=== PATIENT | male | born 1965 | race African-American/Black ===

== ENCOUNTER 2017-01-15 20:32 | Emergency (ER) | payer OTHER ==
[~2017-01-15] VITALS: Ht 175.3 cm; Wt 72.7 kg
[2017-01-15 21:25] LABS: BASOPHILS % (AUTO) 0.2 % (0.0-2.0); EOSINOPHILS % (AUTO) 0.1 % (1.0-6.0); HEMATOCRIT 46.2 % (41-53); HEMOGLOBIN 15.4 g/dL (13.5-17.5); LYMPHOCYTES # (AUTO) 1.5 K/uL (1.0-4.8); LYMPHOCYTES % (AUTO) 17.3 % (22.0-44.0); MEAN CORPUSCULAR HGB CONC 33.3 G/dL (31.0-37.0); MEAN CORPUSCULAR VOLUME 90 fL (80-100); MONOCYTES # (AUTO) 0.4 K/uL (0.1-1.0); MONOCYTES % (AUTO) 4.1 % (2.0-9.0); NEUTROPHILS # (AUTO) 6.8 K/uL (1.8-7.7); NEUTROPHILS % (AUTO) 78.3 % (40.0-70.0); PLATELET COUNT (AUTO) 266 K/uL (150-450); RED BLOOD CELL COUNT(AUTO) 5.12 MIL/uL (4.50-5.90); RED CELL DISTRIBUTION WIDTH 13.4 % (11.5-14.5); WHITE BLOOD COUNT (AUTO) 8.7 K/uL (4.5-11.0)
[2017-01-15 21:41] LABS: ANION GAP 11 mmol/L (8-16); CALCIUM, TOTAL 9.5 mg/dL (8.8-10.5); CARBON DIOXIDE 29 mmol/L (22-29); CHLORIDE 96 mmol/L (98-107); GLOMERULAR FILTR. RATE CALC > 60 mL/min (>60); POTASSIUM 4.3 mmol/L (3.5-5.1); SODIUM SERUM 136 mmol/L (136-145); UREA NITROGEN, BLOOD 13 mg/dL (7-18)
[2017-01-15 21:47] LABS: ALANINE AMINOTRANSFERASE 23 U/L (12-78); ALBUMIN 4.1 g/dL (3.4-5.0); ASPARTATE AMINOTRANSFERASE 17 U/L (15-37); BILIRUBIN,TOTAL 1.2 mg/dL (0.1-1.0); TOTAL PROTEIN, SERUM 8.3 g/dL (6.4-8.2)
[2017-01-15 22:16] LABS: RBC MORPHOLOGY COMMENT NORMAL RBC MORPH
[2017-01-15 23:07] LABS: APPEARANCE,URINE CLOUDY (CLEAR); GLUCOSE, URINE (UA) NEGATIVE (NEGATIVE); KETONES,URINE >=80 mg/dL (NEGATIVE); LEUKOCYTE ESTERASE ,URINE NEGATIVE (NEGATIVE); OCCULT BLOOD,URINE NEGATIVE (NEGATIVE); PH,URINE 5.5 (5.0-8.0); PROTEIN,URINE POS 1+ (NEGATIVE)
[2017-01-15 23:19] LABS: ADD UA MICROSCOPIC NO
[2017-01-16] MEDS ORDERED: ONDANSETRON HCL 4 MG/2 ML VIAL IVP ONE (00:45)
[2017-01-16] MEDS ORDERED: MORPHINE SULFATE 4 MG/ML SYRINGE IVP ONE (00:45)
[2017-01-16] MEDS ORDERED: DONNATAL/LIDOCAINE/MAALOX 55 ML BOTTLE PO ONE (01:00)
[2017-01-16] MEDS ORDERED: BARIUM SULFATE 0.1% SUSPENSION 450 ML BOTTLE PO ONE (01:00)
[2017-01-16] MEDS ORDERED: SODIUM CHLORIDE 0.9% 100 ML ONE (02:02)
[2017-01-16] MEDS ORDERED: IOVERSOL 350 MG/ML 100 ML VIAL ONE (02:02)
[2017-01-16 04:26] VITALS: BP 128/82
== END 2017-01-16 04:39 | disposition home or self-care (01) ==
LOC: EMS 20:34
DX: R10.13 Epigastric pain (principal)
CPT/HCPCS: 36415; 74177; 80053; 81003; 83690; 84484; 85025; 93005; 96374; 96375; 99285; J2270; J2405; J7050; Q9967; Z7610 ×2

== ENCOUNTER 2024-01-09 15:00 | Emergency (ER) | payer OTHER ==
[~2024-01-09] VITALS: Ht 165.1 cm; Wt 70.5 kg
[2024-01-09 15:10] VITALS: TEMP 97.8
[2024-01-09] MEDS: BACITRACIN 0.9 GM PACKET OINTMENT TP ONE (15:41)
[2024-01-09] MEDS: LIDOCAINE 1% 10 ML VIAL SQ ONE (15:41)
[2024-01-09 16:30] VITALS: BP 119/85; PULSE 85; RESP 16
[2024-01-09] MEDS ORDERED: CEPH-558 PO (16:31)
[2024-01-09] MEDS ORDERED: ACET-66 PO (16:31)
== END 2024-01-09 16:53 | disposition home or self-care (01) ==
LOC: EMS 15:48
DX: S61.213A Laceration without foreign body of left middle finger without damage to nail, initial encounter (principal); F12.90 Cannabis use, unspecified, uncomplicated; W26.8XXA Contact with other sharp object(s), not elsewhere classified, initial encounter; Y93.89 Activity, other specified; Y92.89 Other specified places as the place of occurrence of the external cause; Y99.8 Other external cause status
CPT/HCPCS: 99283; 12002; J3490

== ENCOUNTER 2024-01-24 09:30 | Emergency (ER) | payer OTHER ==
[~2024-01-24] VITALS: Ht 172.7 cm; Wt 72.7 kg
[~2024-01-24 09:30] MED LIST: ACET-66 PO; CEPH-558 PO
[2024-01-24 09:39] VITALS: TEMP 97.9
[2024-01-24 10:30] VITALS: BP 130/75; PULSE 75; RESP 18
== END 2024-01-24 10:47 | disposition home or self-care (01) ==
LOC: EMS 09:30
DX: S61.211D Laceration without foreign body of left index finger without damage to nail, subsequent encounter (principal); F12.90 Cannabis use, unspecified, uncomplicated; Z48.02 Encounter for removal of sutures; X58.XXXD Exposure to other specified factors, subsequent encounter
CPT/HCPCS: 99283